=== PATIENT | male | born 1970 | race Caucasian/White ===

== ENCOUNTER 2020-04-22 13:02 | Emergency (ER) | payer OTHER ==
[~2020-04-22] VITALS: Ht 185.4 cm; Wt 102.1 kg
[2020-04-22] MEDS ORDERED: HYDROcodone-ACET 5/325MG TAB PO ONE (14:15)
[2020-04-22 17:00] VITALS: BP 150/96
== END 2020-04-22 17:20 | disposition home or self-care (01) ==
LOC: ER 13:02
DX: S82.141A Displaced bicondylar fracture of right tibia, initial encounter for closed fracture (principal); S86.901A Unspecified injury of unspecified muscle(s) and tendon(s) at lower leg level, right leg, initial encounter; E78.5 Hyperlipidemia, unspecified; I10 Essential (primary) hypertension; F17.210 Nicotine dependence, cigarettes, uncomplicated; W11.XXXA Fall on and from ladder, initial encounter; Y93.89 Activity, other specified; Y92.89 Other specified places as the place of occurrence of the external cause; Y99.8 Other external cause status
CPT/HCPCS: 29505; 73562; 73700

== ENCOUNTER 2021-06-24 18:58 | Emergency (ER) | payer OTHER ==
[~2021-06-24] VITALS: Ht 185.4 cm; Wt 113.4 kg
[2021-06-24 19:42] VITALS: BP 157/91
== END 2021-06-24 23:59 | disposition left against medical advice (07) ==
LOC: ER 19:00
DX: M54.9 Dorsalgia, unspecified (principal); M25.511 Pain in right shoulder; Z53.21 Procedure and treatment not carried out due to patient leaving prior to being seen by health care provider

== ENCOUNTER 2024-03-24 22:36 | Inpatient (IN) | payer OTHER ==
[~2024-03-24] VITALS: Ht 185.4 cm; Wt 121.0 kg
[2024-03-24 23:20] VITALS: PULSE 94; RESP 16; O2SAT 94
[2024-03-24] MEDS: SODIUM CHLORIDE 0.9% 1,000 ML IV ONE (23:50)
[2024-03-24] MEDS: MORPHINE SULFATE 4 MG/ML SYR/VIAL IV ONE (23:50)
[2024-03-25] MEDS: HYDROmorphone HCL 2 MG/ML VL/or syr IV ONE ×2 (02:16→07:56)
[2024-03-25] MEDS ORDERED: ONDANSETRON HCL 4 MG/2 ML VIAL IV PRN (04:30)
[2024-03-25] MEDS ORDERED: ACETAMINOPHEN 325 MG TAB PO PRN (04:30)
[2024-03-25 05:02] LABS: Basophils # (auto) 0.2 10 ^3/uL (0-0.2); Basophils % (auto) 1.1 % (0.0-2.0); Eosinophils # (auto) 0.3 10 ^3/uL (0-0.8); Eosinophils % (auto) 1.8 % (0.0-7.0); Hematocrit 35.6 % (41.0-53.0); Hemoglobin 12.4 g/dL (13.5-17.5); Lymphocytes # (auto) 2.2 10 ^3/uL (0.4-5.4); Lymphocytes % (auto) 15.7 % (10.0-50.0); Mean Corpuscular Hemoglobin 32.6 pg (28.0-32.0); Mean Corpuscular Hgb Conc. 34.8 g/dL (32.0-36.0); Mean Corpuscular Volume 93.6 fL (80.0-100.0); Monocytes # (auto) 1.4 10 ^3/uL (0-1.3); Monocytes % (auto) 9.9 % (0.0-12.0); Neutrophils % (auto) 71.5 % (37.0-80.0); Platelet Count (auto) 206 10^3/uL (140-450); Red Cell Distribution Width 13.3 % (11.8-14.3)
[2024-03-25] MEDS: LORazepam 2MG/ML-1ML VIAL IV ONE (05:09)
[2024-03-25 05:29] LABS: Alanine Aminotransferase 22 U/L (7-40); Albumin 3.9 g/dL (3.2-4.8); Alkaline Phosphatase 80 U/L (46-116); Anion Gap 6 (5-15); Aspartate Aminotransferase 23 U/L (13-40); BUN/Creatinine Ratio 21.3 (10.0-20.0); Bilirubin, Total 0.4 mg/dL (0.2-1.0); Blood Urea Nitrogen 17 mg/dL (9-23); Calcium 8.9 mg/dL (8.7-10.4); Carbon Dioxide 27 mmol/L (20-30); Chloride 109 mmol/L (98-107); Glucose 100 mg/dL (74-106); Potassium 4.1 mmol/L (3.5-5.1); Sodium 142 mmol/L (136-145); Total Protein 6.2 g/dL (5.7-8.2)
[2024-03-25] MEDS ORDERED: MORPHINE SULFATE INJ 2 MG/ml SYRG IV PRN (06:00)
[2024-03-25] MEDS ORDERED: NITROGLYCERIN 0.4 MG SL TAB SL PRN (06:00)
[2024-03-25] MEDS: SODIUM CHLOR 0.9% PF (SALINE LOCK) 10ML VIAL/SYR IV SCH (06:06)
[2024-03-25 06:09] LABS: Urine Bacteria None Seen /hpf (None Seen)
[2024-03-25 06:31] LABS: Urine Blood Negative /uL (Negative); Urine Clarity Clear (Clear); Urine Color Light-Yellow (Yellow); Urine Protein, UAD Negative (Negative); Urine Specific Gravity 1.028 (1.001-1.035); Urine Urobilinogen Normal (Negative); Urine WBC <1 /hpf (0 - 3); Urine pH 5.5 (5.0-9.0)
[2024-03-25 06:41] LABS: Amphetamine Screen, Urine Pos (NEGATIVE); Benzodiazephine Screen, Urine Neg (NEGATIVE)
[2024-03-25 06:42] LABS: Barbiturate Scree,Urine Neg (NEGATIVE); Cannabinoid Screen, Urine Pos (NEGATIVE); Cocaine Screen, Urine Neg (NEGATIVE); Opiate Scree,Urine Pos (NEGATIVE); Phencyclidine Screen, Urine Neg (NEGATIVE)
[2024-03-25 07:30] VITALS: PULSE 84; RESP 18; O2SAT 95
[2024-03-25] MEDS: ENOXAPARIN SOD 40 MG/0.4 ML SYRINGE SC SCH (10:23)
[2024-03-25] MEDS: MORPHINE SULFATE INJ 2 MG/ml SYRG IV PRN (13:30)
[2024-03-25] MEDS: HYDROcodone-ACET 5/325MG TAB PO PRN (16:03)
[2024-03-25] MEDS ORDERED: FURO20TA4 PO (17:03)
[2024-03-25] MEDS ORDERED: TRAZ-227 PO (17:03)
[2024-03-25] MEDS ORDERED: MORP1TAB12 PO (17:03)
[2024-03-25] MEDS ORDERED: LIDO1PAD55 TOP (17:03)
[2024-03-25] MEDS ORDERED: CYCL-611 PO (17:03)
[2024-03-25] MEDS ORDERED: POTA-220 (17:03)
[2024-03-25] MEDS ORDERED: OXYC-1050 (17:03)
[2024-03-25] MEDS ORDERED: ALBU108A5 PO (17:03)
[2024-03-25 17:34] VITALS: BP 156/93; PULSE 84; RESP 16; TEMP 98.3; O2SAT 98
[2024-03-25] MEDS: DOCUSATE SOD 100 MG CAP PO PRN (17:45)
[2024-03-25 17:56] VITALS: BP 156/93; PULSE 84; RESP 16; TEMP 98.3; O2SAT 98
[2024-03-25 18:00] VITALS: PULSE 84; RESP 16; O2SAT 98
[2024-03-25] MEDS ORDERED: SIMV10TA20 PO (19:20)
[2024-03-25] MEDS ORDERED: LISI20TA56 PO (19:20)
[2024-03-25 20:00] VITALS: PULSE 81
[2024-03-25 21:00] VITALS: BP 160/96; PULSE 54; RESP 18; TEMP 98.2; O2SAT 97
[2024-03-26] VITALS (9 sets, daily range): BP systolic 126–159; BP diastolic 58–97; PULSE 72–101; RESP 16–20; TEMP 97.5–99; O2SAT 91–100
[2024-03-26 06:44] LABS: Basophils # (auto) 0.1 10 ^3/uL (0-0.2); Basophils % (auto) 0.5 % (0.0-2.0); Eosinophils # (auto) 0.2 10 ^3/uL (0-0.8); Eosinophils % (auto) 1.4 % (0.0-7.0); Hematocrit 39.1 % (41.0-53.0); Hemoglobin 13.5 g/dL (13.5-17.5); Lymphocytes % (auto) 12.6 % (10.0-50.0); Mean Corpuscular Hemoglobin 32.7 pg (28.0-32.0); Mean Corpuscular Hgb Conc. 34.6 g/dL (32.0-36.0); Mean Corpuscular Volume 94.5 fL (80.0-100.0); Monocytes # (auto) 1.4 10 ^3/uL (0-1.3); Neutrophils # (auto) 12.1 10 ^3/uL (1.6-8.6); Neutrophils % (auto) 76.5 % (37.0-80.0); Platelet Count (auto) 212 10^3/uL (140-450); Red Blood Cells 4.14 10^6/uL (4.5-5.90); Red Cell Distribution Width 13.5 % (11.8-14.3); White Blood Cell 15.8 10^3/uL (4.4-10.8)
[2024-03-26 06:59] LABS: INR 0.98 (0.9-1.15); Partial Thromboplastin Time 32.7 SEC (24.5-34.5); Prothrombin Time 10.4 sec (9.3-11.8)
[2024-03-26] MEDS ORDERED: fentaNYL CITRATE 100 MCG/2 ML VL ONE (07:06)
[2024-03-26] MEDS ORDERED: PROPOFOL 10 MG/ML 20 ML IV ONE (07:07)
[2024-03-26] MEDS ORDERED: MEPERIDINE HCL (25 MG/ML) 1ML VIAL ONE ×2 (07:07→07:51)
[2024-03-26 07:47] LABS: Alanine Aminotransferase 20 U/L (7-40); Alkaline Phosphatase 92 U/L (46-116); Blood Urea Nitrogen 10 mg/dL (9-23); Chloride 105 mmol/L (98-107); Glucose 96 mg/dL (74-106); Potassium 3.7 mmol/L (3.5-5.1); Sodium 139 mmol/L (136-145)
[2024-03-26 07:48] LABS: Albumin 4.3 g/dL (3.2-4.8); Anion Gap 9 (5-15); Aspartate Aminotransferase 14 U/L (13-40); Carbon Dioxide 25 mmol/L (20-30)
[2024-03-26 07:49] LABS: Calcium 9.6 mg/dL (8.7-10.4); Total Protein 6.6 g/dL (5.7-8.2)
[2024-03-26] MEDS ORDERED: ONDANSETRON HCL 4 MG/2 ML VIAL ONE (07:51)
[2024-03-26] MEDS ORDERED: DexAMETHasone SOD PHOS 10MG/1ML VIAL INJ ONE (07:51)
[2024-03-26] MEDS: ceFAZolin 2 GM/D5W50ml 50 ML IV ONE (07:51)
[2024-03-26] MEDS: ROPIVACAINE 0.5% (5MG/ML) 20ML AMPULE IJ ONE ×2 (07:52→08:28)
[2024-03-26 07:54] LABS: BUN/Creatinine Ratio 14.3 (10.0-20.0)
[2024-03-26] MEDS ORDERED: fentaNYL CITRATE 5 ML ONE (08:07)
[2024-03-26] MEDS: ONDANSETRON HCL 4 MG/2 ML VIAL IV ONE (09:30)
[2024-03-26] MEDS ORDERED: MEPERIDINE HCL (25 MG/ML) 1ML VIAL IV PRN (09:30)
[2024-03-26] MEDS: HYDROmorphone HCL 2 MG/ML VL/or syr IV PRN (09:49)
[2024-03-27] VITALS (8 sets, daily range): BP systolic 126–167; BP diastolic 72–98; PULSE 67–90; RESP 18–20; TEMP 97.8–98.8; O2SAT 92–99
[2024-03-27] MEDS: HYDROcodone-ACET 10/325MG TAB PO PRN (01:09)
[2024-03-27] MEDS: ENOXAPARIN SOD 40 MG/0.4 ML SYRINGE SC SCH (09:08)
[2024-03-28] VITALS (7 sets, daily range): BP systolic 152–167; BP diastolic 91–101; PULSE 66–79; RESP 17–18; TEMP 36.7; O2SAT 95–98
[2024-03-28] MEDS ORDERED: HYDR-4798 PO (10:45)
== END 2024-03-28 12:55 | disposition home or self-care (01) | DRG 313 ==
LOC: EDBD 22:36 → ER 22:36 → TELE 03-25 05:57 → TELE-WESTW 03-25 17:26
PROVIDERS: ADMIT Nurse Practitioner Family; ATTEND Family Medicine
PROC: 0QSG04Z Reposition Right Tibia with Internal Fixation Device, Open Approach (ICD-10-PCS; 2024-03-26)
PROC: 0QSJ04Z Reposition Right Fibula with Internal Fixation Device, Open Approach (ICD-10-PCS; principal; 2024-03-26 07:39)
DX: S82.851A Displaced trimalleolar fracture of right lower leg, initial encounter for closed fracture (principal); E78.00 Pure hypercholesterolemia, unspecified; F15.10 Other stimulant abuse, uncomplicated; I10 Essential (primary) hypertension; F17.210 Nicotine dependence, cigarettes, uncomplicated; W18.39XA Other fall on same level, initial encounter; Y93.89 Activity, other specified; Y92.89 Other specified places as the place of occurrence of the external cause; Y99.8 Other external cause status
CPT/HCPCS: 36415; 71045; 73590; 73600; 73610; 73630; 76000; 80053; 80307; 81001; 85025; 85610; 85730; 86850; 86900; 86901; 93005; 93306; 97110; 97116; 97163; 97530; G0378; J1100; J2405; J2704